=== PATIENT | female | born 1990 | race Caucasian/White ===

== ENCOUNTER 2017-11-01 15:58 | Emergency (ER) | payer OTHER ==
[2017-11-01 16:08] VITALS: BP 119/85; PULSE 94; TEMP 99.1; BMI 21.7
--- NOTE | 2017-11-01 16:21 | PDOC ---
History of Present Illness - History of Present Illness Initial Comments: 11/01/17 16:24 Physical exam: Alert and oriented well-developed well-nourished no acute distress cheerful and cooperative. No pain at rest. Pain with movement. Afebrile vital signs normal HEENT clear Neck supple without bruit mass or nodes. No point tenderness or deformity of the cervical vertebrae Lungs clear to P&A with full breath sounds throughout bilaterally. No wheezes rales or rhonchi Point tenderness over the second rib at the left sternal border, reproducing the patient's pain. No crepitus or deformity. CV S1 and S2 normal without murmur rub or gallop pulses full and symmetric no JVD or edema no bruits Abdomen soft nontender without mass or organomegaly Extremities no CCE Skin clear, no rash, adequate turgor and wet mucous membranes Neurological intact Impression: Costochondritis, possibly aggravated by upper body weight training Plan: Reassure. Rest of the upper body. Anti-inflammatories. Timely follow-up no improvement. Patient fully ambulatory and in no significant pain or other distress upon discharge to follow-up as recommended <Juan R Sherman - Last Filed: 11/01/17 16:24> - General History Source: Patient Exam Limitations: No Limitations - History of Present Illness Initial Comments: 11/01/17 16:38 The patient is a 27 year old female with a significant PMH of seizure episodes( 2008) who presents to the emergency department with 1 week of constant chest pain. The patient reports that her chest pain began last monday evening. She states that her chest pain is worsened with movement, inspiration, and coughing. The patient reports that she experiences associated pain down her back with her chest pain . She states that she has been experiencing trouble lifting things she would otherwise be able to lift. The patient reports that she usually goes to the gym and exercises regularly . she denies any activity that is out of the norm. She denies ad history of asthma or smoking. She denies any pertinent family history . the patient denies any shortness of breath, headache and dizziness. She denies fever, chills, nausea, vomit, diarrhea and constipation. She denies any urinary symptoms. The patient denies any other complaints. <Kalin Grant - Last Filed: 11/01/17 16:39> - General Chief Complaint: Pain Stated Complaint: LEFT CHEST WALL PAIN Time Seen by Provider: 11/01/17 16:01 Past History - Past Medical History COPD: No Other medical history: DENIES - Suicide/Smoking/Psychosocial Hx Smoking History: Never smoked Have you smoked in the past 12 months: No Information on smoking cessation initiated: No Hx Alcohol Use: Yes (SOCIAL) Drug/Substance Use Hx: No Substance Use Type: Alcohol <Juan R Sherman - Last Filed: 11/01/17 16:24> <Kalin Grant - Last Filed: 11/01/17 16:39> - Past Medical History Allergies/Adverse Reactions: Allergies Allergy/AdvReac Type Severity Reaction Status Date / Time No Known Allergies Allergy Unverified 11/01/17 15:59 Home Medications: Ambulatory Orders NK [No Known Home Medication] 11/01/17 Review of Systems - Review of Systems Able to Perform ROS?: Yes Comments:: 11/01/17 16:38 CONSTITUTIONAL: Absent: fever, chills, diaphoresis, generalized weakness, malaise, loss of appetite HEENT: Absent: rhinorrhea, nasal congestion, throat pain, throat swelling, difficulty swallowing, mouth swelling, ear pain, eye pain, visual Changes CARDIOVASCULAR: (+)chest pain Absent: syncope, palpitations, irregular heart rate, lightheadedness, peripheral edema RESPIRATORY: Absent: cough, shortness of breath, dyspnea with exertion, orthopnea, wheezing, stridor, hemoptysis GASTROINTESTINAL: Absent: abdominal pain, abdominal distension, nausea, vomiting, diarrhea, constipation, melena, hematochezia GENITOURINARY: Absent: dysuria, frequency, urgency, hesitancy, hematuria, flank pain, genital pain MUSCULOSKELETAL: Absent: myalgia, arthralgia, joint swelling SKIN: Absent: rash, itching, pallor HEMATOLOGIC/IMMUNOLOGIC: Absent: easy bleeding, easy bruising, lymphadenopathy, frequent infections ENDOCRINE: Absent: unexplained weight gain, unexplained weight loss, heat intolerance, cold intolerance NEUROLOGIC: Absent: headache, focal weakness or paresthesias, dizziness, unsteady gait, seizure, mental status changes, bladder or bowel incontinence PSYCHIATRIC: Absent: anxiety, depression, suicidal or homicidal ideation, hallucinations. <Kalin Grant - Last Filed: 11/01/17 16:39> *Physical Exam - Vital Signs Last Vital Signs Temp Pulse Resp BP Pulse Ox 99.1 F 94 H 16 119/85 100 11/01/17 15:59 11/01/17 15:59 11/01/17 15:59 11/01/17 15:59 11/01/17 15:59 <Juan R Sherman - Last Filed: 11/01/17 16:24> - Vital Signs Last Vital Signs Temp Pulse Resp BP Pulse Ox 99.1 F 94 H 16 119/85 100 11/01/17 15:59 11/01/17 15:59 11/01/17 15:59 11/01/17 15:59 11/01/17 15:59 <Kalin Grant - Last Filed: 11/01/17 16:39> Medical Decision Making - Medical Decision Making 11/01/17 16:21 EKG reveals normal sinus rhythm, normal axes and intervals, no ST-T wave changes. There is a question of Q waves in V1 and V2, this is probably due to vertical orientation of the heart. There is no suggestion of symptoms compatible with an old TX. The character of the pain, not present at rest, only present with movement, radiating through to the back, pleuritic, and completely reproducible with pressure strongly suggests costochondritis, especially with the patient's history of vigorous weight training with the upper body. <Juan R Sherman - Last Filed: 11/01/17 16:24> *DC/Admit/Observation/Transfer - Discharge Dispostion Decision to Admit order: No <Juan R Sherman - Last Filed: 11/01/17 16:24> - Attestations Scribe Attestion: 11/01/17 16:39 Documentation prepared by Kalin Grant, acting as medical pathology teacher for Juan R Cha MD. <Kalin Grant - Last Filed: 11/01/17 16:39> Diagnosis at time of Disposition: Costochondritis - Discharge Dispostion Disposition: HOME Condition at time of disposition: Stable - Referrals Referrals: Jose Zacarias MD [Staff Physician] - 1 week - Patient Instructions Printed Discharge Instructions: DI for Costochondritis Additional Instructions: If pain worsens or is accompanied by other serious symptoms such as lightheadedness, dizziness, nausea, perspiring, or shortness of breath, return to emergency room. Otherwise take anti-inflammatory medication, reduced vigorous upper body exercise, and follow-up with primary physician.
--- NOTE | 2017-11-03 11:23 | EKG ---
Test Reason : Blood Pressure : / mmHG Vent. Rate : 082 BPM Atrial Rate : 082 BPM P-R Int : 158 ms QRS Dur : 086 ms QT Int : 394 ms P-R-T Axes : 047 062 057 degrees QTc Int : 460 ms NORMAL SINUS RHYTHM SEPTAL INFARCT , AGE UNDETERMINED ABNORMAL ECG NO PREVIOUS ECGS AVAILABLE Confirmed by TIM CHIN MD ([id number]) on 11/03/2017 11:22:43 AM Referred By: MD ALMANZA Confirmed By:TIM CHIN MD
== END 2017-11-01 16:33 | disposition home or self-care (01) ==
LOC: FER 15:58
DX: M94.0 Chondrocostal junction syndrome [Tietze] (principal)
CPT/HCPCS: 93005; 93010; 99282-25